=== PATIENT | male | born 1975 | race Caucasian/White ===

== ENCOUNTER 2017-01-11 09:16 | Inpatient (IN) | payer SELFPAY ==
[2017-01-11] MEDS ORDERED: KETOROLAC 30 MG/1 ML VIAL IVP ONE (09:25)
[2017-01-11] MEDS ORDERED: Sodium Chloride 0.9% 1,000 ML PRIMARY IV ONE ×4 (09:25→18:21)
[2017-01-11] MEDS ORDERED: ONDANSETRON 4 MG/2 ML VIAL IVP ONE (09:25)
--- NOTE | 2017-01-11 09:32 | PDOC ---
Chest Pain HPI - General Chief Complaint: Chest Pain Stated Complaint: chest pain, coughing up blood Date Seen by Provider: 01/11/17 Time Seen by Provider: 09:27 Source: Patient Exam Limitations: POSITIVE: No limitations Treatment Prior to Arrival: REPORTS: None Nurse's Notes Reviewed & Considered: Yes - History of Present Illness Initial Comments: Patient comes in today with chief complaint of chest pain. Over the last 3 days patient has developed cough, chest pain, hematemesis, and fevers. Fever yesterday to 101. This morning he presented to the medical office building and was sent here for further evaluation. Yesterday he was seen in the clinic and a throat swab done which was negative for strep. Patient is complaining of headache, myalgias, sore throat, cough, shortness of breath, chest pain on the right side that is sharp in nature and radiates into his back and upper chest. He's had posttussive nausea but no emesis at this time. He denies any diarrhea. No hematuria dysuria. Denies any rashes. Body Location Affected: REPORTS: Chest Timing: REPORTS: Gradual, Getting Worse Duration: >24 hours Severity: Moderate Context: REPORTS: Other (Began to develop upper respiratory symptoms 3 days ago with cough, congestion, and fevers.) Quality: REPORTS: "Pain", Sharpness, Stabbing Radiation: REPORTS: Neck (R), Shoulder (R) Associated Symptoms: REPORTS: Nausea, Shortness of Breath, Productive Cough ( blood) Modifying Factors: improves with: None Reported Similar Symptoms Previously: No Recently seen/treated/hospitalized: No Any Prior Injuries Related to Current Complaint?: No - Patient Home Medications Home Medications: Home Medications Ascorbic Acid [Vitamin C] 1,000 mg PO tab 11/02/16 Glucosamine Sulfate 2Kcl [Glucosamine] 1,000 mg PO tab 11/02/16 Methylprednisolone [Medrol] 4 mg PO 3-4XD #1 packet 11/02/16 Omeprazole 1 tab ORAL BID #180 capsule 11/02/16 Varenicline Tartrate [Chantix] 1 tab PO ASDIR #1 tab 12/05/16 Varenicline Tartrate [Chantix] 1 tab PO BID #30 tab 12/05/16 - Patient Allergies Allergies/Adverse Reactions: Allergies Allergy/AdvReac Type Severity Reaction Status Date / Time No Known Allergies Allergy Unverified 11/02/16 11:13 Past Medical History - heen HEENT History: Denies History Cardiovascular History: Denies History Respiratory History: Denies History Gastrointestinal History: GERD Genitourinary History: Denies History Endocrine History: Denies History Musculoskeletal History: Denies History Neurological History: Denies History Blood Disorders: Denies History Psychiatric History: Denies History Cancer History: Denies History Alcohol Use: Occasionally ROS - Limitations ROS Limitations: No Limitations Constitution: REPORTS: Chills, Fever, Diaphoresis Cardiovascular: REPORTS: Chest Pain Respiratory: REPORTS: Cough Productive, Hurts To Breathe, Shortness Of Breath Neurological: REPORTS: Headache Gastrointestinal: REPORTS: Nausea Endocrine: REPORTS: Fatigue Musculoskeletal: REPORTS: Muscle Aches Genitourinary: REPORTS: Denies Symptoms Eyes: REPORTS: Denies Symptoms ENT: REPORTS: Denies Symptoms Skin: REPORTS: Denies Skin Symptoms Lympathic: REPORTS: Denies Lympathic Symptoms Immunologic: POSITIVE: Denies Symptoms Psychiatric: POSITIVE: Denies Psych Symptoms Chest Pain PE - General Appearance General Appearance: REPORTS: Alert, Cooperative, No Evidence of Trauma, Mild Distress - HEENT HEENT: POSITIVE: Head Inspection Nml, Eyes Inspection Nml, Ears Inspection Nml, Nose Inspection Nml, Oral/Dental Inspect. Nml, Pharynx Inspect. Nml, PERRL, EOMI - Neck Neck: REPORTS: Normal Inspection - Respiratory Respiratory: REPORTS: No Respiratory Distress, Trunk Pain (Tenderness to palpation over his right anterior chest and right lateral chest.), Decreased Air Movement - Cardiovascular Cardiovascular: REPORTS: Regular Rate and Rhythm, Heart Sounds Normal Peripheral Pulses: Radial (L): 2+ - Abdomen Abdomen: Soft: (All Quadrants), Normal Bowel Sounds: (All Quadrants), Denies Tenderness: (All Quadrants) - Skin Skin: REPORTS: Intact, Normal For Race, Warm, Dry, No Rash - Extremities Extremity: Non-Tender: (All Extremities), Normal ROM: (All Extremities), Normal Inspection: (All Extremities), Pelvis Stable: (All Extremities) - Neurological / Psychological Neurological: POSITIVE: Affect Apporpriate, Oriented X3, Motor Normal, Sensation Normal Chest Pain Progress - Results Reviewed by me Xrays/CTs/US Reviewed by me: Yes Discussed with Radiologist: Yes Lab Results Reviewed: Yes Lab Results:: Laboratory Results 01/11/17 01/11/17 Range/Units 09:18 09:35 WBC 13.41 H (4.8-10.8) 10^3/uL RBC 5.27 (4.70-6.10) 10^6/uL Hgb 15.9 (14.0-18.0) g/dL Hct 46.9 (42.0-52.0) % MCV 89.0 (80-90) FL MCH 30.2 (27-31) PG MCHC 33.9 (33-37) g/dL RDW Std Deviation 43.8 (39-50) fL RDW Coeff of Ronak 13.6 (11.5-14.5) % Plt Count 233 (140-350) 10*3/uL MPV 10.5 (7.4-12.2) FL Immature Gran % (Auto) 1.2 (0-5) % Neut % (Auto) 87.5 H (50-80) % Lymph % (Auto) 6.7 L (10-50) % Douglas % (Auto) 4.4 L (5-15) % Eos % (Auto) 0.1 (0-8) % Baso % (Auto) 0.1 (0-1) % Immature Gran # (Auto) 0.16 10*3/UL Neut # (Auto) 11.74 10*3/UL Lymph # (Auto) 0.90 10*3/uL Douglas # (Auto) 0.59 (0.3-0.8) 10*3/UL Eos # (Auto) 0.01 10*3/UL Baso # (Auto) 0.01 10*3/UL WBC Morphology Comment Normal morphology (NORM) Plt Morphology Comment Normal morphology (NORM) RBC Morph Comment Normal morphology (NORM) D-Dimer 0.19 (0.00-0.59) mg/L Sodium 134 L (135-145) meq/L Potassium 4.4 (3.8-5.2) meq/L Chloride 98 (98-112) meq/L Carbon Dioxide 23 (23-33) meq/L Anion Gap 13 (5-20) BUN 21 (7-22) mg/dL Creatinine 1.0 (0.70-1.50) mg/dL Estimated GFR > 60 (>60 ml/min/1.73m(2)) BUN/Creatinine Ratio 21.00 H (6-20) Glucose 105 (78-110) mg/dL Calculated Osmolality 280.0 (267-292) mOsm/kg Lactic Acid 3.4 H (0.70-2.10) MMOL/L Calcium 9.2 (8.7-10.7) mg/dL Magnesium 1.5 L (1.6-2.4) mg/dL Total Bilirubin 1.6 H (0.3-1.2) mg/dL AST 26 (21-57) IU/L ALT 20 L (21-72) IU/L Alkaline Phosphatase 67 (38-126) IU/L Troponin I < 0.012 (< 0.040) ng/mL C-Reactive Protein 25.7 H (0.0-0.9) mg/dL Total Protein 7.2 (6.1-8.0) g/dL Albumin 4.2 (3.5-4.8) g/dL Globulin 3.0 (2.50-4.10) g/dL Albumin/Globulin Ratio 1.40 (1.3-2.0) mg/g - Patient's Progress Pain Medication Addressed: POSITIVE: Yes Re-Examine Time: 10:20 Status: POSITIVE: Unchanged MDM / ED Course: Patient was evaluated, radiographic examinations were obtained, blood was drawn and sent to the lab for studies. I patient received a bolus of 2 L of normal saline, Toradol, and Zofran. Initial presentation showed hypotension with a blood pressure of systolic of approximately 94, serial blood pressures showed increasing hypotension with blood pressure down to 74 systolic he was given a second bolus of normal saline his blood pressure began to improve. Findings: CBC shows white count of 13-1/2. Chest x-ray shows a right lower lobe pneumonia. Cardiac enzymes and d-dimer are normal. Assessment: Right lower lobe pneumonia, hypotension, tobacco abuse. Plan: Admission, IV antibiotics. Quality Measure Initiative: CP/AMI: POSITIVE: EKG Quality Measure Initiative: CAP: POSITIVE: Antibiotic(s), CXR or CT - Consult Consult (If Yes, Name of Consulting MD & Time Called): Yes (Dr. Sweet 10:19) Consulting MD will see pt:: POSITIVE: [facility] [place] Admit Counseled: POSITIVE: Patient, RE: Lab Results, RE: Radiology Results, RE: DX Patient Care Time - Estimated PCT Patient Care Time (In Minutes): 45 Vital Signs - Recent Vital Signs Vital Signs: Vital Signs (Last 8 hours) Temp Pulse Resp BP Pulse Ox 01/11/17 09:50 98.0 F 113 H 18 92/62 96 - VS Reviewed Vital Signs Reviewed: Yes Discharge Clinical Impression: Pneumonia Discharge Disposition: Admit to Inpatient Condition: Stable Follow Up With: NONE,NONE [Primary Care Provider] - Date Decision to Admit to Inpatient: 01/11/17 Time Decision to Admit to Inpatient: 10:20
[2017-01-11 09:48] LABS: BASOPHILS # (AUTO) 0.01 10*3/UL; BASOPHILS % (AUTO) 0.1 % (0-1); EOSINOPHILS # (AUTO) 0.01 10*3/UL; EOSINOPHILS % (AUTO) 0.1 % (0-8); HEMATOCRIT 46.9 % (42.0-52.0); HEMOGLOBIN 15.9 g/dL (14.0-18.0); MEAN CORPUSCULAR HEMOGLOBIN 30.2 PG (27-31); MEAN CORPUSCULAR HGB CONC 33.9 g/dL (33-37); MEAN PLATELET VOLUME 10.5 FL (7.4-12.2); MONOCYTES # (AUTO) 0.59 10*3/UL (0.3-0.8); MONOCYTES % (AUTO) 4.4 % (5-15); NEUTROPHILS # (AUTO) 11.74 10*3/UL; NEUTROPHILS % (AUTO) 87.5 % (50-80); RED BLOOD COUNT 5.27 10^6/uL (4.70-6.10)
[2017-01-11 09:54] LABS: PLATELET MORPHOLOGY COMMENT NORMAL MORPHOLOGY (NORM); RBC MORPHOLOGY COMMENT NORMAL MORPHOLOGY (NORM); WBC MORPHOLOGY COMMENT NORMAL MORPHOLOGY (NORM)
[2017-01-11 09:57] LABS: BLOOD UREA NITROGEN 21 mg/dL (7-22); CALCIUM 9.2 mg/dL (8.7-10.7); EST GLOMERULAR FILTRATION > 60 (>60 ml/min/1.73m(2)); MAGNESIUM 1.5 mg/dL (1.6-2.4); SERUM ALBUMIN 4.2 g/dL (3.5-4.8)
[2017-01-11] MEDS ORDERED: Magnesium Sulfate 2gm (Premix) 2 GM in Premix 1 BAG IV ONE (10:05)
[2017-01-11] MEDS ORDERED: AZITHROMYCIN 250 MG TABLET PO ONE (10:08)
[2017-01-11] MEDS ORDERED: cefTRIAXone Inj 2 GM in Sodium Chloride 0.9% 100 ML IV ONE (10:08)
[2017-01-11 10:12] LABS: C-REACTIVE PROTEIN 25.7 mg/dL (0.0-0.9)
--- NOTE | 2017-01-11 10:26 | DI ---
PA /LATERAL CHEST X-RAY, 01/11/2017 9:39 AM : Clinical History: Fever. Chest pain. Productive cough. Previous Exam: 09/28/2011. There is no acute soft tissue or bony abnormality. Heart size is normal. There is a right middle lobe pneumonia involving both segments. There is no pleural effusion. Mediastinal structures are normal. There are no pulmonary nodules. Reading: Right lower lobe pneumonia.
[2017-01-11] MEDS ORDERED: IPRATROPIUM/ALBUTEROL SULFATE 3 ML NEB NEB ONE (10:53)
--- NOTE | 2017-01-11 11:17 | DI ---
CT CHEST SCAN WITH IV CONTRAST, 01/11/2017 10:08 AM : Clinical History: Shortness of breath. Fever. Chest pain. Previous Exam: None at this facility. Scans are performed from the base of the neck to the level of the adrenal glands with contrast. 75 ml of Isovue 300 was injected IV. The base of the neck and thoracic inlet are normal. There are no abnormal axillary, supraclavicular, mediastinal, or hilar nodes. The heart is normal. There is a right middle lobe pneumonia involving th e medial and lateral segments and air bronchograms are demonstrated. There are some patchy densities in the superior segment of the right lower lobe and this segment is also involved with early pneumoni a. There is no pleural effusion. There is no pulmonary arterial hypertension. No pulmonary emboli are visualized to the third order branches. Both internal glands and the spleen and the visualized porti ons of the liver and pancreas are normal. READIN. Right middle lobe pneumonia with early pneumonia involving the superior segment of the right lowe r lobe. 2. The exam was performed as a CT chest scan but the pulmonary arteries are visualized. No clots are seen to the third order branches.
[2017-01-11] MEDS ORDERED: ACETAMINOPHEN 500 MG TABLET PO PRN ×2 (11:53→16:26)
[2017-01-11] MEDS ORDERED: KETOROLAC 15 MG/1 ML VIAL IVP PRN (11:53)
[2017-01-11] MEDS ORDERED: ALBUTEROL SULFATE 2.5 MG/3 ML NEB PRN (11:53)
[2017-01-11] MEDS ORDERED: NORMAL SALINE 10 ML SYRINGE FLUSH IVP PRN (11:53)
[2017-01-11] MEDS ORDERED: ONDANSETRON 4 MG/2 ML VIAL IVP PRN (11:53)
[2017-01-11] MEDS ORDERED: LIDOCAINE W/ SODIUM BICARB 0.5 ML SYR SUBD PRN ×2 (11:53→16:26)
[2017-01-11] MEDS ORDERED: cefTRIAXone Inj 2 GM in Sodium Chloride 0.9% 100 ML IV SCH (11:53)
[2017-01-11] MEDS: Sodium Chloride 0.9% 1,000 ML PRIMARY IV SCH ×2 (12:44→17:43)
[2017-01-11] MEDS ORDERED: Influenza 16-17 Vaccine(4yrs+) 45 MCG/0.5 ML SYRINGE IM ONE ×2 (13:02→16:26)
--- NOTE | 2017-01-11 13:41 | EKG ---
[address] [address] Measurements Intervals Tully Rate: 108 P: 64 FL: 123 QRS: 80 QRSD: 94 T: 72 QT: 308 QTc: 372 Interpretive Statements SINUS TACHYCARDIA NONSPECIFIC T-WAVE ABNORMALITY ABNORMAL RHYTHM ECG No previous ECG available for comparison Electronically Signed On 01-12-17 08:07:35 MDT by Narayan Doyle MD [email or web address]
[2017-01-11] MEDS ORDERED: Sodium Chloride 0.9% 2,000 ML PRIMARY IV ONE (16:00)
--- NOTE | 2017-01-11 16:17 | PDOC ---
History and Physical - History of Present Illness Date and Time of Service: 01/11/2017, 1615 Chief Complaint: Chest pain and hemoptysis History of Present Illness: This very pleasant otherwise healthy 41-year-old male who is trying to quit smoking and is on Chantix therapy who came in with complaints of chest pain accompanied with fevers and cough for the last 2 days. It started yesterday and he thought he was coming down with a cold. The chest pain is been quite severe, constant in nature, and associated with a cough. He's even have posttussive vomiting. He had some hemoptysis as well. Nothing like this has ever happened to him before. He came in for evaluation and was found to have a very large right-sided lower lobe pneumonia. He did not have the flu shot this year. Influenza studies were negative. He denies any drug use. He tried Tylenol for pain and that did not help and he also tried emergen-C to trying get better and that did not help either. Past Medical History Medical History: 1. Tobacco abuse. 2. GERD Surgical History: 1. Arthroscopy of shoulder. 2. Tonsillectomy Pertinent Family History: Patient denies any major medical issues of heart disease or diabetes in his family, including his parents and siblings. Past Social History: Smokes, drinks Alcohol occasionally. Has a girlfriend, no children. Denies drug use. States that he is going to work in the [employer] starting next week. Tobacco Use: Current Every Day Smoker Substance Use Type: None Alcohol Use: Occasionally Medication / Allergies Home Medications: Home Medications Medication Instructions Recorded Confirmed Type Glucosamine Sulfate 2Kcl 1,000 mg PO tab 11/02/16 History [Glucosamine] Omeprazole 1 tab ORAL BID #180 capsule 11/02/16 01/11/17 Clinic Varenicline Tartrate [Chantix] 1 tab PO BID #30 tab 12/05/16 01/11/17 Clinic Allergies/Adverse Reactions: Allergies Allergy/AdvReac Type Severity Reaction Status Date / Time No Known Allergies Allergy Unverified 11/02/16 11:13 Review of Systems - Review of Systems All Systems: Reviewed & No Additional Complaints Except as Stated (I did a 12 point review systems, and it was negative other than that discussed in history present illness and that noted below.) - Constitutional Constitutional: REPORTS: Fever/Chills - Respiratory Respiratory: REPORTS: Cough, Pleuritic Pain, Hemoptysis - Cardiovascular Cardiovascular: REPORTS: Chest Pain (Probably pleuritic) - Gastrointestinal Gastrointestinal / Abdominal: REPORTS: Vomiting (Patient thinks it vomiting related to cough) - Musculoskeletal Musculoskeletal: REPORTS: Other (Aching joints that have only been present the last 2 days.) Exam - Vitals Vital Signs: Vital Signs Temperature 98.0 F Temperature Source Temporal Artery Scan Pulse Rate [Pulse Oximeter 106 Right] Pulse Rate 110 Respiratory Rate 18 Blood Pressure 103/69 Pulse Ox 96 Oxygen Delivery Method Room Air Height 5 ft 6 in Weight 160 lb - General General Appearance: POSITIVE: Cooperative, Mild Distress Additional General Exam Details: Borderline hypertension with tachycardia. - Head Head Exam: POSITIVE: Normal Inspection, Normocephalic, Atraumatic - Eye Eye Exam: POSITIVE: No Scleral Icterus - ENT ENT Exam: POSITIVE: Mucous Membranes Dry - Neck Neck Exam: POSITIVE: Normal Inspection, No Tenderness, No Thyromegaly - Respiratory Respiratory Exam: POSITIVE: Breathing Non Labored, Normal to Percussion and Palpation, Decreased Breath Sounds (In basis but only slightly.) - Cardiovascular Cardiovascular Exam: POSITIVE: No Murmur, No Clicks, No Gallops, No Rubs, Tachycardia, No JVD - GI/Abdominal GI/Abdominal Exam: POSITIVE: Normal Bowel Sounds, Non Tender, Non Distended, Soft - Rectal Rectal Exam: POSITIVE: Deferred - External Exam: POSITIVE: Deferred Exam: POSITIVE: Deferred - Extremities Extremities Exam: POSITIVE: No Clubbing Present, No Edema Present, No Cyanosis Present - Back Back Exam: POSITIVE: Normal Inspection, No CVA Tenderness - Neurological Neurological Exam: POSITIVE: Alert, Oriented x 3, No Facial Droop, Speech Intact / Clear, Moves All Extremities Equally - Psychiatric Psychiatric Exam: POSITIVE: Normal Affect, Anxious - Integumentary Integumentary Exam: POSITIVE: Normal Color, Warm, Dry, Intact - Central Line Examination Central Line Present on Admission: No Results - Labs CBC and BMP: 01/11/17 09:18 01/11/17 09:18 Labs - Last 24 Hours: Laboratory Results 01/11/17 Range/Units 14:16 Lactic Acid 3.7 H (0.70-2.10) MMOL/L Laboratory Results 01/11/17 01/11/17 01/11/17 Range/Units 09:18 09:35 14:16 WBC 13.41 H (4.8-10.8) 10^3/uL RBC 5.27 (4.70-6.10) 10^6/uL Hgb 15.9 (14.0-18.0) g/dL Hct 46.9 (42.0-52.0) % MCV 89.0 (80-90) FL MCH 30.2 (27-31) PG MCHC 33.9 (33-37) g/dL RDW Std Deviation 43.8 (39-50) fL RDW Coeff of Ronak 13.6 (11.5-14.5) % Plt Count 233 (140-350) 10*3/uL MPV 10.5 (7.4-12.2) FL Immature Gran % (Auto) 1.2 (0-5) % Neut % (Auto) 87.5 H (50-80) % Lymph % (Auto) 6.7 L (10-50) % Gordon % (Auto) 4.4 L (5-15) % Eos % (Auto) 0.1 (0-8) % Baso % (Auto) 0.1 (0-1) % Immature Gran # (Auto) 0.16 10*3/UL Neut # (Auto) 11.74 10*3/UL Lymph # (Auto) 0.90 10*3/uL Gordon # (Auto) 0.59 (0.3-0.8) 10*3/UL Eos # (Auto) 0.01 10*3/UL Baso # (Auto) 0.01 10*3/UL WBC Morphology Comment Normal morphology (NORM) Plt Morphology Comment Normal morphology (NORM) RBC Morph Comment Normal morphology (NORM) D-Dimer 0.19 (0.00-0.59) mg/L Sodium 134 L (135-145) meq/L Potassium 4.4 (3.8-5.2) meq/L Chloride 98 (98-112) meq/L Carbon Dioxide 23 (23-33) meq/L Anion Gap 13 (5-20) BUN 21 (7-22) mg/dL Creatinine 1.0 (0.70-1.50) mg/dL Estimated GFR > 60 (>60 ml/min/1.73m(2)) BUN/Creatinine Ratio 21.00 H (6-20) Glucose 105 (78-110) mg/dL Calculated Osmolality 280.0 (267-292) mOsm/kg Lactic Acid 3.4 H 3.7 H (0.70-2.10) MMOL/L Calcium 9.2 (8.7-10.7) mg/dL Magnesium 1.5 L (1.6-2.4) mg/dL Total Bilirubin 1.6 H (0.3-1.2) mg/dL AST 26 (21-57) IU/L ALT 20 L (21-72) IU/L Alkaline Phosphatase 67 (38-126) IU/L Troponin I < 0.012 (< 0.040) ng/mL C-Reactive Protein 25.7 H (0.0-0.9) mg/dL Total Protein 7.2 (6.1-8.0) g/dL Albumin 4.2 (3.5-4.8) g/dL Globulin 3.0 (2.50-4.10) g/dL Albumin/Globulin Ratio 1.40 (1.3-2.0) mg/g - EKG Data -: EKG Interpreted by Me Rate: Tachycardia EKG Shows Normal: Sinus Rhythm - Imaging Status: Image Reviewed by Me (CXR on my view is positive for right sided pneumonia CT of chest on my view is positive for pneumonia. Right side.) Assessment and Plan - Patient Problems (1) Sepsis Current Visit: Yes Status: Acute Qualifiers: Sepsis type: sepsis due to unspecified organism Qualified Description: Sepsis, due to unspecified organism Qualifier Code(s): (A41.9) Sepsis, unspecified organism (2) Pneumonia Current Visit: Yes Status: Acute Qualifiers: Pneumonia type: due to unspecified organism Laterality: right Lung location: lower lobe of lung Qualified Description: Pneumonia of right lower lobe due to infectious organism Qualifier Code(s): (J18.1) Lobar pneumonia, unspecified organism (3) GERD (gastroesophageal reflux disease) Current Visit: Yes Status: Acute (4) Tobacco abuse Current Visit: Yes Status: Acute - Assessment / Plan Additional Assessment/Plan Details: Admit the patient. I've given him 2 L of fluid bolus in addition to 2 L he got in the emergency room, his lactic acid is actually worsen, he is tachycardic, hypotensive, and has elevated white blood cell counts with an infectious source which qualifies him for sepsis. At this point I think he needs to be transferred to the intensive care unit for further monitoring and care. Rocephin and Zithromax for now. Oxygen as needed. Pain medications for pleuritic pain. Has not responded to Toradol so we'll have to use IV Dilaudid or something of that nature. I discussed with the patient that he may end up needing central venous access for continued support of his blood pressures if he remains hypotensive despite fluid support. He may need vasopressor therapy. Blood cultures have been drawn in the emergency room and are pending. Tylenol as necessary for fever. The patient's pneumonia severity index was class II at 69 points. Despite that , he meets criteria for sepsis. Photo / Body Diagrams - Uploaded Photos Uploaded Photos:
[2017-01-11] MEDS ORDERED: VARENICLINE TARTRATE PO SCH (16:30)
[2017-01-11] MEDS: HYDROmorphone 2 MG/1 ML IVP PRN ×2 (16:42→20:17)
[2017-01-11] MEDS: ONDANSETRON 4 MG/2 ML VIAL IVP PRN (16:42)
[2017-01-11] MEDS: ACETAMINOPHEN 500 MG TABLET PO PRN ×2 (17:19→23:39)
[2017-01-11] MEDS: VARENICLINE TARTRATE 1 MG PO SCH (17:41)
[2017-01-11] MEDS: OMEPRAZOLE 20 MG CAPSULE PO SCH (17:44)
[2017-01-11] MEDS ORDERED: Sodium Chloride 0.9% 1,000 ML IV SCH (19:00)
[2017-01-11] MEDS ORDERED: Lidocaine Inj 1% 0 ML ONE (19:08)
--- NOTE | 2017-01-11 20:22 | DI ---
AP CHEST X-RAY, 01/11/2017 7:34 PM : Clinical History: Sepsis secondary to pneumonia. Status post internal jugular catheter placement. Marcelino ification of catheter location. Previous Exam: 01/11/2017, at 0957 hours. There is a right internal jugular catheter and the catheter tip is at the junction between the superi or vena cava and the right atrium. There is no pneumothorax. The right middle lobe pneumonia is again visualized. Heart size is normal. Readin. The right internal jugular catheter tip is at the junction between the distal superior vena cava and the right atrium. 2. Right middle lobe pneumonia. There is no pneumothorax.
[2017-01-11] MEDS ORDERED: HEPARIN 500 UNIT/5 ML SYRINGE FOR CENTRAL LINE IVP ONE (20:29)
[2017-01-11] MEDS: KETOROLAC 15 MG/1 ML VIAL IVP PRN (20:29)
[2017-01-11] MEDS ORDERED: VARENICLINE TARTRATE 1 MG TABLET PO SCH (21:00)
--- NOTE | 2017-01-11 21:06 | PROCEDURE1 ---
Procedure - - Date and Time of Service: 01/11/2017, 2103 Procedure Note: Procedure performed: Right Internal jugular central venous catheter placement Indication for procedure: Pneumonia with sepsis, hypotension that was refractory to early goal-directed therapy, sepsis, with risks discussed as possible arterial puncture, pneumothorax, and localized pain. Benefits for medication administration, blood draws, hemodynamic monitoring, and management of clinical condition. Description of procedure: The patient was prepped and draped in the usual fashion with a full body drape. Ultrasound guidance was used to identify the vein. The area was cleansed with chlorhexidine. Lidocaine was used for local anesthesia. Using an introducer needle attached to a 5 mL syringe, this was inserted and angled towards the ipsilateral nipple, with ultrasound guidance as well. There was a flash of venous blood as the internal jugular vein was cannulated via the introducer needle. A guidewire was inserted through the needle hub into the internal jugular vein and the needle was removed over the wire. A 10 blade was then used to perform a small dermatotomy at the needle insertion site. The venous dilator was then placed over the guidewire using Seldinger technique, and then removed. 3 port central venous catheter was then placed over the guidewire inserted into the internal jugular vein and the guidewire was removed. All ports were flushed with normal saline. All ports had draw back. The catheter was sutured into place, and the skin was cleansed with chlorhexidine and the catheter was dressed. A postprocedure x-ray showed the line and correct anatomic position with no evidence of pneumothorax and pneumonia still present in the right lower lobe. I personally reviewed the chest X-ray. Complications: None present at time of procedure Disposition: Patient remains in the intensive care unit now in critical condition. Time for procedure and line was unique and separate from that in clinical practice and evaluation and management.
[2017-01-11] MEDS ORDERED: Norepinephrine Drip 8 MG in D5W 250 ML IV SCH (21:15)
[2017-01-11] MEDS ORDERED: Vancomycin-PHA to Dose IV PRN (21:26)
[2017-01-11] MEDS: ALBUTEROL SULFATE 2.5 MG/3 ML NEB PRN (22:05)
[2017-01-12] MEDS: HYDROmorphone 2 MG/1 ML IVP PRN ×2 (00:18→04:51)
[2017-01-12] MEDS ORDERED: HEPARIN 500 UNIT/5 ML SYRINGE FOR CENTRAL LINE IVP ONE (01:44)
[2017-01-12] MEDS ORDERED: HEPARIN 500 UNIT/5 ML SYRINGE FOR CENTRAL LINE IVP PRN (01:53)
[2017-01-12] MEDS: Clindamycin 900mg (Premix) 900 MG in Dextrose 1 BAG IV SCH ×3 (03:34→19:16)
[2017-01-12] MEDS: NORMAL SALINE 10 ML SYRINGE FLUSH IVP PRN (04:51)
[2017-01-12 05:09] LABS: BASOPHILS # (AUTO) 0.02 10*3/UL; BASOPHILS % (AUTO) 0.2 % (0-1); EOSINOPHILS # (AUTO) 0.09 10*3/UL; HEMATOCRIT 37.1 % (42.0-52.0); HEMOGLOBIN 12.3 g/dL (14.0-18.0); LYMPHOCYTES # (AUTO) 1.15 10*3/uL; MEAN CORPUSCULAR HGB CONC 33.2 g/dL (33-37); MEAN CORPUSCULAR VOLUME 90.5 FL (80-90); MEAN PLATELET VOLUME 10.7 FL (7.4-12.2); MONOCYTES # (AUTO) 0.51 10*3/UL (0.3-0.8); MONOCYTES % (AUTO) 5.4 % (5-15); NEUTROPHILS # (AUTO) 7.66 10*3/UL; NEUTROPHILS % (AUTO) 80.9 % (50-80)
[2017-01-12 05:14] LABS: PLATELET MORPHOLOGY COMMENT NORMAL MORPHOLOGY (NORM); RBC MORPHOLOGY COMMENT NORMAL MORPHOLOGY (NORM); WBC MORPHOLOGY COMMENT NORMAL MORPHOLOGY (NORM)
[2017-01-12] MEDS: ACETAMINOPHEN 500 MG TABLET PO PRN ×3 (05:16→17:34)
[2017-01-12 05:18] LABS: BLOOD UREA NITROGEN 13 mg/dL (7-22); BUN/CREATININE RATIO 16.25 (6-20); CALCIUM 8.1 mg/dL (8.7-10.7); EST GLOMERULAR FILTRATION > 60 (>60 ml/min/1.73m(2))
[2017-01-12] MEDS: OMEPRAZOLE 20 MG CAPSULE PO SCH ×2 (06:05→17:31)
[2017-01-12] MEDS: ALBUTEROL SULFATE 2.5 MG/3 ML NEB PRN ×4 (06:39→20:01)
[2017-01-12] MEDS ORDERED: OMEPRAZOLE 20 MG CAPSULE PO SCH (07:00)
[2017-01-12] MEDS: VARENICLINE TARTRATE 1 MG PO SCH ×2 (08:00→17:31)
[2017-01-12] MEDS ORDERED: ASCORBIC ACID 500 MG TABLET PO SCH (09:00)
[2017-01-12] MEDS ORDERED: Magnesium Sulfate 2gm (Premix) 2 GM in Premix 1 BAG IV ONE (10:11)
[2017-01-12] MEDS ORDERED: SODIUM CHLORIDE 44 ML SPRAY ENOS PRN (10:38)
[2017-01-12] MEDS ORDERED: Hypromellose/Glycerin/PEG 400 Ophth Soln 15 ML DROPS EACH EYE PRN (10:53)
[2017-01-12] MEDS ORDERED: cefTRIAXone Inj 2 GM in Sodium Chloride 0.9% 100 ML IV SCH ×4 (12:00)
[2017-01-12] MEDS ORDERED: cefTRIAXone Inj 1 GM in Sodium Chloride 0.9% 100 ML IV ONE (14:00)
--- NOTE | 2017-01-12 14:53 | PDOC(PROG) ---
Date and Time of Service: 01/12/2017, 1450 Interval History: No complaints of chest pain. That has improved significantly. Coughing up some green phlegm today. No hemoptysis. Still short of breath and feels weak without the oxygen. Still tachycardic and hypotensive. Objective : Data - Labs CBC and BMP: 01/12/17 04:42 01/12/17 04:42 Labs - Last 24 Hours: Laboratory Results 01/12/17 01/12/17 01/12/17 Range/Units 01:47 04:28 04:42 WBC 9.46 (4.8-10.8) 10^3/uL RBC 4.10 L (4.70-6.10) 10^6/uL Hgb 12.3 L (14.0-18.0) g/dL Hct 37.1 L (42.0-52.0) % MCV 90.5 H (80-90) FL MCH 30.0 (27-31) PG MCHC 33.2 (33-37) g/dL RDW Std Deviation 44.6 (39-50) fL RDW Coeff of [place] 13.8 (11.5-14.5) % Plt Count 158 (140-350) 10*3/uL MPV 10.7 (7.4-12.2) FL Immature Gran % (Auto) 0.3 (0-5) % Neut % (Auto) 80.9 H (50-80) % Lymph % (Auto) 12.2 (10-50) % [place] % (Auto) 5.4 (5-15) % Eos % (Auto) 1.0 (0-8) % Baso % (Auto) 0.2 (0-1) % Immature Gran # (Auto) 0.03 10*3/UL Neut # (Auto) 7.66 10*3/UL Lymph # (Auto) 1.15 10*3/uL [place] # (Auto) 0.51 (0.3-0.8) 10*3/UL Eos # (Auto) 0.09 10*3/UL Baso # (Auto) 0.02 10*3/UL WBC Morphology Comment Normal morphology (NORM) Plt Morphology Comment Normal morphology (NORM) RBC Morph Comment Normal morphology (NORM) Sodium 136 (135-145) meq/L Potassium 4.6 (3.8-5.2) meq/L Chloride 112 (98-112) meq/L Carbon Dioxide 20 L (23-33) meq/L Anion Gap 4 L (5-20) BUN 13 (7-22) mg/dL Creatinine 0.8 (0.70-1.50) mg/dL Estimated GFR > 60 (>60 ml/min/1.73m(2)) BUN/Creatinine Ratio 16.25 (6-20) Glucose 77 L (78-110) mg/dL Calculated Osmolality 280.0 (267-292) mOsm/kg Lactic Acid 0.9 0.7 (0.70-2.10) MMOL/L Calcium 8.1 L (8.7-10.7) mg/dL Magnesium 1.8 (1.6-2.4) mg/dL Objective : Exam - General General Appearance: No Acute Distress, Cooperative Additional General Exam Details: Vital Signs - Last Taken Temperature 99 F 01/12/17 12:00 Pulse Rate 115 H 01/12/17 14:00 Respiratory Rate 13 01/12/17 14:00 Blood Pressure 110/72 01/12/17 14:00 Pulse Ox 3 01/12/17 14:00 Pulse ox is above 91% on 3 L per nasal cannula. - Head Head Exam: Normal Inspection, Normocephalic, Atraumatic - Eye Eye Exam: No Scleral Icterus - Respiratory Respiratory Exam: Breathing Non Labored, Crackles (In bases bilaterally) - Cardiovascular Cardiovascular Exam: No Murmur, No Clicks, No Gallops, No Rubs, Tachycardia, No JVD - GI/Abdominal GI/Abdominal Exam: Normal Bowel Sounds, Non Tender, Non Distended, Soft - Extremities Extremities Exam: No Clubbing Present, No Edema Present, No Cyanosis Present - Neurological Neurological Exam: Alert, Oriented x 3, No Facial Droop, Speech Intact / Clear, Moves All Extremities Equally - Psychiatric Psychiatric Exam: Normal Affect, Normal Mood - Central Line Examination Central Line Present on Admission: Yes Central Line Type: Triple Lumen Cath Central Line Location: Internal jugular (R) Central Line Site Observations: Asymptomatic, Intact, Patent Assessment and Plan - Patient Problems (1) Sepsis Current Visit: Yes Status: Acute Qualifiers: Sepsis type: Pneumococcus Qualified Description: Sepsis due to Streptococcus pneumoniae Qualifier Code(s): (A40.3) Sepsis due to Streptococcus pneumoniae (2) Pneumonia Current Visit: Yes Status: Acute Qualifiers: Pneumonia type: due to Pneumococcus Laterality: right Lung location : lower lobe of lung Qualified Description: Pneumonia of right lower lobe due to Streptococcus pneumoniae Qualifier Code(s): (J13) Pneumonia due to Streptococcus pneumoniae (3) GERD (gastroesophageal reflux disease) Current Visit: Yes Status: Acute (4) Tobacco abuse Current Visit: Yes Status: Acute - Assessment / Plan Additional Assessment/Plan Details: Today is day 2 of antibiotics. Bacteremic probably with Streptococcus pneumoniae. Stop vancomycin. Continue IV fluids, as necessary vasopressors for hypotension or decreased MAP Check labs tomorrow. The patient is tachycardic and has a slight tremor, and he states to me that when he drinks he drinks a couple times a week and drinks fairly heavily at those times. This could be a withdrawal situation as well? Continue to monitor in the ICU for now. Photo / Body Diagrams - Uploaded Photos Uploaded Photos:
[2017-01-12 15:42] LABS: AMPHETAMINE SCREEN NEGATIVE (NEG); CANNABINOID SCREEN,URINE NEGATIVE (NEG); COCAINE SCREEN NEGATIVE (NEG); METHADONE URINE SCREEN NEGATIVE (NEG); METHAMPHETAMINES SCREEN,URINE NEGATIVE (NEG); OPIATE SCREEN,URINE NEGATIVE (NEG); URINE SAMPLE TYPE CLEAN CATCH URINE
[2017-01-12] MEDS: Dexmedetomidine/NS 100 ML IV SCH ×2 (17:31→19:42)
[2017-01-12] MEDS ORDERED: Diazepam Inj (ETOH withdrawal)10 MG/2 ML CARPUJECT IVP PRN (23:13)
[2017-01-13] MEDS: ACETAMINOPHEN 500 MG TABLET PO PRN ×3 (01:54→21:17)
[2017-01-13] MEDS: Clindamycin 900mg (Premix) 900 MG in Dextrose 1 BAG IV SCH ×2 (01:56→09:59)
[2017-01-13 05:35] LABS: BASOPHILS # (AUTO) 0.02 10*3/UL; BASOPHILS % (AUTO) 0.2 % (0-1); EOSINOPHILS # (AUTO) 0.16 10*3/UL; EOSINOPHILS % (AUTO) 1.8 % (0-8); HEMATOCRIT 35.5 % (42.0-52.0); HEMOGLOBIN 12.1 g/dL (14.0-18.0); LYMPHOCYTES # (AUTO) 1.08 10*3/uL; MEAN CORPUSCULAR HEMOGLOBIN 30.6 PG (27-31); MEAN CORPUSCULAR HGB CONC 34.1 g/dL (33-37); MEAN CORPUSCULAR VOLUME 89.6 FL (80-90); MEAN PLATELET VOLUME 11.4 FL (7.4-12.2); MONOCYTES # (AUTO) 0.74 10*3/UL (0.3-0.8); MONOCYTES % (AUTO) 8.1 % (5-15); NEUTROPHILS # (AUTO) 7.08 10*3/UL; NEUTROPHILS % (AUTO) 77.7 % (50-80); RED BLOOD COUNT 3.96 10^6/uL (4.70-6.10)
[2017-01-13 05:37] LABS: PLATELET MORPHOLOGY COMMENT NORMAL MORPHOLOGY (NORM); RBC MORPHOLOGY COMMENT NORMAL MORPHOLOGY (NORM); WBC MORPHOLOGY COMMENT NORMAL MORPHOLOGY (NORM)
[2017-01-13 05:46] LABS: BLOOD UREA NITROGEN 9 mg/dL (7-22); BUN/CREATININE RATIO 11.25 (6-20); CALCIUM 8.5 mg/dL (8.7-10.7); EST GLOMERULAR FILTRATION > 60 (>60 ml/min/1.73m(2)); MAGNESIUM 1.8 mg/dL (1.6-2.4)
[2017-01-13] MEDS: ALBUTEROL SULFATE 2.5 MG/3 ML NEB PRN ×4 (06:28→20:46)
[2017-01-13] MEDS: OMEPRAZOLE 20 MG CAPSULE PO SCH ×2 (08:04→16:35)
[2017-01-13] MEDS: VARENICLINE TARTRATE 1 MG PO SCH ×2 (08:05→18:36)
[2017-01-13] MEDS: Dexmedetomidine/NS 100 ML IV SCH ×3 (10:02→13:47)
--- NOTE | 2017-01-13 10:56 | PDOC(PROG) ---
Date and Time of Service: 01/13/2017, 1054 Interval History: No chest pain and no shortness breath today. Feels much better. Coughing less. He was walking and ambulatory today. Vitals significantly improved with Precedex and I think this was all consistent with some alcohol withdrawal as well. He does have some mild hand tremors. Objective : Data - Labs CBC and BMP: 01/13/17 04:50 01/13/17 04:50 Labs - Last 24 Hours: Laboratory Results 01/12/17 01/13/17 Range/Units 14:35 04:50 WBC 9.12 (4.8-10.8) 10^3/uL RBC 3.96 L (4.70-6.10) 10^6/uL Hgb 12.1 L (14.0-18.0) g/dL Hct 35.5 L (42.0-52.0) % MCV 89.6 (80-90) FL MCH 30.6 (27-31) PG MCHC 34.1 (33-37) g/dL RDW Std Deviation 44.0 (39-50) fL RDW Coeff of [place] 13.7 (11.5-14.5) % Plt Count 155 (140-350) 10*3/uL MPV 11.4 (7.4-12.2) FL Immature Gran % (Auto) 0.4 (0-5) % Neut % (Auto) 77.7 (50-80) % Lymph % (Auto) 11.8 (10-50) % [place] % (Auto) 8.1 (5-15) % Eos % (Auto) 1.8 (0-8) % Baso % (Auto) 0.2 (0-1) % Immature Gran # (Auto) 0.04 10*3/UL Neut # (Auto) 7.08 10*3/UL Lymph # (Auto) 1.08 10*3/uL [place] # (Auto) 0.74 (0.3-0.8) 10*3/UL Eos # (Auto) 0.16 10*3/UL Baso # (Auto) 0.02 10*3/UL WBC Morphology Comment Normal morphology (NORM) Plt Morphology Comment Normal morphology (NORM) RBC Morph Comment Normal morphology (NORM) Sodium 137 (135-145) meq/L Potassium 4.2 (3.8-5.2) meq/L Chloride 108 (98-112) meq/L Carbon Dioxide 20 L (23-33) meq/L Anion Gap 9 (5-20) BUN 9 (7-22) mg/dL Creatinine 0.8 (0.70-1.50) mg/dL Estimated GFR > 60 (>60 ml/min/1.73m(2)) BUN/Creatinine Ratio 11.25 (6-20) Glucose 90 (78-110) mg/dL Calculated Osmolality 282.0 (267-292) mOsm/kg Calcium 8.5 L (8.7-10.7) mg/dL Magnesium 1.8 (1.6-2.4) mg/dL Ur Collection Type Clean catch urine U Specif Grav (Refrac) 1.010 Urine Opiates Screen Negative (NEG) Ur Buprenorphine Negative (NEG) Ur Oxycodone Screen Negative (NEG) Urine Methadone Screen Negative (NEG) Ur Propoxyphene Screen Negative (NEG) Barbiturate Screen Negative (NEG) U Tricyclic Antidepress Negative (NEG) Phencyclidine Screen Negative (NEG) Amphetamines Screen Negative (NEG) U Methamphetamines Scrn Negative (NEG) Benzodiazepines Screen Negative (NEG) Cocaine Screen Negative (NEG) U Marijuana (THC) Screen Negative (NEG) Objective : Exam - General General Appearance: No Acute Distress, Cooperative Additional General Exam Details: Vital Signs - Last Taken Temperature 99 F 01/13/17 10:51 Pulse Rate 77 01/13/17 10:51 Respiratory Rate 18 01/13/17 10:51 Blood Pressure 132/97 01/13/17 10:51 Pulse Ox 94 01/13/17 09:00 - Eye Eye Exam: No Scleral Icterus - ENT ENT Exam: Mucous Membranes Moist - Neck Neck Exam: Normal Inspection, No Tenderness, No Thyromegaly - Respiratory Respiratory Exam: Clear to Auscultation - Bilaterally, Breathing Non Labored Additional Respiratory Exam Details: Crackles have improved today. - Cardiovascular Cardiovascular Exam: RRR, No Murmur, No Clicks, No Gallops, No Rubs, No JVD - GI/Abdominal GI/Abdominal Exam: Normal Bowel Sounds, Non Tender, Non Distended, Soft - Extremities Extremities Exam: No Clubbing Present, No Edema Present, No Cyanosis Present - Neurological Neurological Exam: Alert, Oriented x 3, No Facial Droop, Speech Intact / Clear, Moves All Extremities Equally Additional Neurological Exam Details: Hand tremors. - Psychiatric Psychiatric Exam: Normal Affect, Anxious Assessment and Plan - Patient Problems (1) Sepsis Current Visit: Yes Status: Acute Qualifiers: Sepsis type: Pneumococcus Qualified Description: Sepsis due to Streptococcus pneumoniae Qualifier Code(s): (A40.3) Sepsis due to Streptococcus pneumoniae (2) Alcohol withdrawal Current Visit: Yes Status: Acute Qualifiers: Complication of substance-induced condition: uncomplicated Qualified Description: Alcohol withdrawal syndrome, uncomplicated Qualifier Code(s) : (F10.230) Alcohol dependence with withdrawal, uncomplicated (3) Pneumonia Current Visit: Yes Status: Acute Qualifiers: Pneumonia type: due to Pneumococcus Laterality: right Lung location : lower lobe of lung Qualified Description: Pneumonia of right lower lobe due to Streptococcus pneumoniae Qualifier Code(s): (J13) Pneumonia due to Streptococcus pneumoniae (4) GERD (gastroesophageal reflux disease) Current Visit: Yes Status: Acute (5) Tobacco abuse Current Visit: Yes Status: Acute - Assessment / Plan Additional Assessment/Plan Details: Overall, I think the patient's vitals the last 24 hours of Monday more consistent, along with his exam, and his history, with alcohol withdrawal. He is significantly improved on some low-dose Precedex. Continue Rocephin and Zithromax. Day #3 of antibiotics. This is pneumococcal pneumonia and it is penicillin sensitive. I think I like to keep patient in the ICU through the day until we are off Precedex. If he can remain off of Precedex and his tachycardia is improved, I think we may be able to transfer him out of the ICU but we'll see through the day. We will slow down IV fluids. Probably stop once Precedex discontinued. Photo / Body Diagrams - Uploaded Photos Uploaded Photos:
[2017-01-13] MEDS: ONDANSETRON 4 MG/2 ML VIAL IVP PRN ×2 (11:38→19:09)
[2017-01-13] MEDS ORDERED: cefTRIAXone Inj 2 GM in Sodium Chloride 0.9% 100 ML IV SCH (14:00)
[2017-01-13] MEDS: KETOROLAC 15 MG/1 ML VIAL IVP PRN (15:00)
[2017-01-13 15:18] LABS: BILIRUBIN,URINE NEGATIVE (NEG); COLOR,URINE YELLOW; GLUCOSE, URINE (UA) NEGATIVE (NEG); NITRATE,URINE NEGATIVE (NEG); OCCULT BLOOD,URINE Trace-lysed (NEG); PH,URINE 6.5 (5.0-8.5); PROTEIN,URINE TRACE mg/dl (NEG); UROBILINOGEN,URINE 0.2 mg/dL (0.2)
[2017-01-13 15:25] LABS: CLARITY,URINE CLEAR (CLEAR)
[2017-01-13 15:47] LABS: URINE SAMPLE TYPE CLEAN CATCH URINE; WBC,URINE 0-3
[2017-01-13] MEDS: NORMAL SALINE 10 ML SYRINGE FLUSH IVP PRN (19:10)
[2017-01-13] MEDS ORDERED: SODIUM CHLORIDE 44 ML SPRAY ENOS PRN (19:11)
[2017-01-13] MEDS ORDERED: HEPARIN 500 UNIT/5 ML SYRINGE FOR CENTRAL LINE IVP PRN (19:11)
[2017-01-13] MEDS ORDERED: Diazepam Inj (ETOH withdrawal)10 MG/2 ML CARPUJECT IVP PRN (19:11)
[2017-01-13] MEDS ORDERED: LIDOCAINE W/ SODIUM BICARB 0.5 ML SYR SUBD PRN (19:11)
[2017-01-13] MEDS ORDERED: ONDANSETRON 4 MG/2 ML VIAL IVP PRN (19:11)
[2017-01-13] MEDS ORDERED: Hypromellose/Glycerin/PEG 400 Ophth Soln 15 ML DROPS EACH EYE PRN (19:11)
[2017-01-13] MEDS ORDERED: KETOROLAC 15 MG/1 ML VIAL IVP PRN (19:11)
[2017-01-14] MEDS: ACETAMINOPHEN 500 MG TABLET PO PRN ×2 (04:24→13:18)
[2017-01-14 04:28] LABS: BASOPHILS # (AUTO) 0.02 10*3/UL; BASOPHILS % (AUTO) 0.3 % (0-1); EOSINOPHILS # (AUTO) 0.13 10*3/UL; EOSINOPHILS % (AUTO) 1.9 % (0-8); HEMATOCRIT 35.4 % (42.0-52.0); LYMPHOCYTES # (AUTO) 1.43 10*3/uL; MEAN CORPUSCULAR HEMOGLOBIN 30.1 PG (27-31); MEAN CORPUSCULAR HGB CONC 33.9 g/dL (33-37); MEAN CORPUSCULAR VOLUME 88.7 FL (80-90); MEAN PLATELET VOLUME 10.6 FL (7.4-12.2); MONOCYTES # (AUTO) 0.84 10*3/UL (0.3-0.8); MONOCYTES % (AUTO) 12.2 % (5-15); NEUTROPHILS # (AUTO) 4.41 10*3/UL; NEUTROPHILS % (AUTO) 64.4 % (50-80); RED BLOOD COUNT 3.99 10^6/uL (4.70-6.10)
[2017-01-14 04:29] LABS: PLATELET MORPHOLOGY COMMENT NORMAL MORPHOLOGY (NORM); WBC MORPHOLOGY COMMENT NORMAL MORPHOLOGY (NORM)
[2017-01-14 04:30] LABS: RBC MORPHOLOGY COMMENT NORMAL MORPHOLOGY (NORM)
[2017-01-14 04:38] LABS: BLOOD UREA NITROGEN 14 mg/dL (7-22); BUN/CREATININE RATIO 15.55 (6-20); CALCIUM 8.4 mg/dL (8.7-10.7); EST GLOMERULAR FILTRATION > 60 (>60 ml/min/1.73m(2))
[2017-01-14] MEDS: ALBUTEROL SULFATE 2.5 MG/3 ML NEB PRN ×2 (06:16→11:11)
[2017-01-14] MEDS ORDERED: Influenza 16-17 Vaccine(4yrs+) 45 MCG/0.5 ML SYRINGE IM ONE (06:18)
[2017-01-14] MEDS ORDERED: VARENICLINE TARTRATE PO SCH (07:00)
[2017-01-14] MEDS ORDERED: OMEPRAZOLE 20 MG CAPSULE PO SCH (07:00)
[2017-01-14] MEDS: ACIDOPHILUS/BULGARICUS CHEWABLE TABLET PO SCH ×2 (08:13→11:45)
[2017-01-14] MEDS: VARENICLINE TARTRATE 1 MG PO SCH (10:10)
[2017-01-14] MEDS: NORMAL SALINE 10 ML SYRINGE FLUSH IVP PRN ×2 (11:54→13:18)
[2017-01-14 12:33] VITALS: RESP 18; TEMP 98.6
--- NOTE | 2017-01-14 13:05 | DCSUMMARY ---
Hospitalization Summary Admit Date: 01/11/17 Discharge Date: 01/14/17 Primary Diagnosis:: pneumococcal pneumonia with bacteremia and sepsis Hospital Course: This very pleasant 41-year-old male who is trying to quit smoking and is on Chantix, who presented with fevers, tachycardia, and hypotension. He was initially admitted with community acquired pneumonia, but continually have problems with hypotension and tachycardia and was transferred to the intensive care unit. He was later found to have bacteremia with Streptococcus pneumoniae. He was treated with Rocephin and Zithromax. A central line was eventually placed to help with hypotension and management. Electrolytes were replaced as necessary. There was some question as to whether or not there could've been some mild alcohol withdrawal, and Precedex was used for about a day and a half. The patient recovered well from those events. Post-ICU stay, the patient has recovered very well, his breathing is improved, his cough is improved, his hemoptysis has completely resolved. His urinalysis really didn't show any evidence of red blood cells and it appeared that there might be a trace setting of blood cells with hemolysis, but at this point I think that this is all related to pneumococcal pneumonia. No evidence of joint pain. No evidence of heart issues. At the time of discharge, we will prescribe amoxicillin for total of 6 more days , for total of 10 days of therapy. The patient also asked for an inhaler which we'll prescribe. He will continue his efforts to quit smoking. I stopped his proton pump inhibitor as this could certainly have put him at risk for pneumonia. Today, no complains of chest pain. No shortness breath. Was able to coater smoking pipe the shower and take an hour long shower today. No nausea or vomiting and eating well. Assessment and Plan: 1. As per discharge assessments noted 2. Disposition: Patient is discharged home. 3. Condition on discharge, stable and improved. 4. Diet: regular diet 5. Activities: resume normal activities 6. Follow-Up: 1. Dr. Javier next week 2. Chest x-ray in 8 weeks to recheck pneumonia 7. Medications at the Time of Discharge: Home Medications Medication Instructions Recorded Confirmed Type Glucosamine Sulfate 2Kcl 1,000 mg PO tab 11/02/16 History [Glucosamine] Varenicline Tartrate [Chantix] 1 tab PO BID #30 tab 03/06/17 04/15/17 Clinic Acidophilus/Bulgaricus [Lactinex] 2 tab PO AC #30 tab.chew 01/14/17 Rx Albuterol [PROVENTIL HFA] 1 - 2 inh IH .Q4-6H PRN PRN #1 01/14/17 Rx inhaler Amoxicillin 1,000 mg PO Q8H #18 cap 01/14/17 Rx 8. Time, care, counseling and coordination of care for this discharge is greater than 30 minutes. Exam - Vitals Vital Signs: Vital Signs Temperature 98.6 F Temperature Source Oral Pulse Rate [Apical] 48 Pulse Rate [Telemetry] 58 Pulse Rate [Pulse Oximeter 68 Right] Pulse Rate 55 Respiratory Rate 18 Blood Pressure [Left Arm] 103/93 Blood Pressure 132/90 Pulse Ox 93 Oxygen Flow Rate 1 Oxygen Delivery Method Room Air Height 5 ft 6 in Weight 167 lb 12.8 oz Patient Problems - Patient Problem List (1) Sepsis Current Visit: Yes Status: Acute Qualifiers: Sepsis type: Pneumococcus Qualified Description: Sepsis due to Streptococcus pneumoniae Qualifier Code(s): (A40.3) Sepsis due to Streptococcus pneumoniae (2) Alcohol withdrawal Current Visit: Yes Status: Acute Qualifiers: Complication of substance-induced condition: uncomplicated Qualified Description: Alcohol withdrawal syndrome, uncomplicated Qualifier Code(s) : (F10.230) Alcohol dependence with withdrawal, uncomplicated (3) Pneumonia Current Visit: Yes Status: Acute Qualifiers: Pneumonia type: due to Pneumococcus Laterality: right Lung location : lower lobe of lung Qualified Description: Pneumonia of right lower lobe due to Streptococcus pneumoniae Qualifier Code(s): (J13) Pneumonia due to Streptococcus pneumoniae (4) GERD (gastroesophageal reflux disease) Current Visit: Yes Status: Acute (5) Tobacco abuse Current Visit: Yes Status: Acute
[2017-01-14] MEDS ORDERED: cefTRIAXone Inj 2 GM in Sodium Chloride 0.9% 100 ML IV SCH (14:00)
== END 2017-01-14 14:37 | disposition home or self-care (01) | DRG 193 ==
LOC: ER 09:16 → MED/SURG 10:45 → ICU 16:12 → MED/SURG 01-13 18:47
PROVIDERS: ADMIT Family Medicine; ATTEND Family Medicine
PROC: 05HM33Z Insertion of Infusion Device into Right Internal Jugular Vein, Percutaneous Approach (ICD-10-PCS; principal; 2017-01-11)
DX: J13 Pneumonia due to Streptococcus pneumoniae (principal); A41.9 Sepsis, unspecified organism; F10.230 Alcohol dependence with withdrawal, uncomplicated; R04.2 Hemoptysis; K21.9 Gastro-esophageal reflux disease without esophagitis; Z72.0 Tobacco use
CPT/HCPCS: 36415; 71010; 71020; 71260; 80048; 80053; 80305; 81001; 83605; 83735; 84484; 85025; 85379; 86140; 86713; 86738; 87040; 87641; 87804; 93005; 93010; 94640; 94761; 96361; 96365; 96368; 96375; 99285; J0696; J1170; J1885; J2001; J2405; J3370; J3475; J3490; J7030; J7040; J7050; J7620

== ENCOUNTER → 2017-03-22 | Outpatient (CLI) | payer BC ==
--- NOTE | 2017-03-22 13:37 | DI ---
PA /LATERAL CHEST X-RAY, 03/22/2017 10:22 AM : Clinical History: Prior pneumonia. Previous Exam: January 11, 2017 There is no acute soft tissue or bony abnormality. Heart size is normal. The lungs are clear. There has been interval resolution of the right lower lobe pneumonia. Mediastinal structures are normal. There are no pulmonary nodules. IMPRESSION: Normal chest x-ray with interval resolution of right lower lobe pneumonia.
== END ==
LOC: RAD 10:12
PROVIDERS: ATTEND Family Medicine
DX: J18.9 Pneumonia, unspecified organism (principal)
CPT/HCPCS: 71020